=== PATIENT | female | born 1950 | race Caucasian/White ===

== ENCOUNTER → 2019-06-20 | Outpatient (CLI) | payer MEDICARE, OTHER ==
[~2019-06-20] MED LIST: DIAZ5; Maxalt10 MG; PANT40; Valtrex500 MG
[2019-06-22 15:07] LABS: HPV 16 Negative (Negative); HPV 18 Negative (Negative); HPV OTHER HR TYPES Negative (Negative)
== END ==
LOC: LAB 16:12 → LAB SHORT 16:12
PROVIDERS: Family Medicine
DX: Z12.4 Encounter for screening for malignant neoplasm of cervix (principal)
CPT/HCPCS: 87624; G0123

== ENCOUNTER 2019-10-09 06:34 | Day surgery (SDC) | payer MEDICARE, OTHER ==
[~2019-10-09] VITALS: Ht 157.5 cm; Wt 77.6 kg
[~2019-10-09 06:34] MED LIST changes: +Crestor20 MG
== END 2019-10-09 08:53 | disposition home or self-care (01) ==
LOC: ORSCSDS 06:34
PROVIDERS: Internal Medicine Gastroenterology
PROC: 0DJD8ZZ Inspection of Lower Intestinal Tract, Via Natural or Artificial Opening Endoscopic (ICD-10-PCS; principal; 2019-10-09 08:00)
DX: Z12.11 Encounter for screening for malignant neoplasm of colon (principal); K64.8 Other hemorrhoids; K57.30 Diverticulosis of large intestine without perforation or abscess without bleeding; Z80.0 Family history of malignant neoplasm of digestive organs; Z87.891 Personal history of nicotine dependence; Z79.899 Other long term (current) drug therapy
CPT/HCPCS: J2405; J2704; J7120

== ENCOUNTER → 2022-10-14 | Outpatient (CLI) | payer MEDICARE, OTHER ==
[2022-10-22 13:13] LABS: HPV 16 Negative (Negative); HPV 18 Negative (Negative); HPV OTHER HR TYPES Negative (Negative)
== END ==
LOC: LAB SHORT 16:05 → LAB 16:05
PROVIDERS: Family Medicine
DX: Z12.4 Encounter for screening for malignant neoplasm of cervix (principal)
CPT/HCPCS: 87624; G0145